=== PATIENT | female | born 1985 ===

== ENCOUNTER 2021-01-01 09:30 | Inpatient (IN) | payer OTHER ==
[~2021-01-01] VITALS: Ht 167.6 cm; Wt 79.4 kg
[2021-01-05] MEDS ORDERED: GABAPENTIN300 M2 (07:59)
[2021-01-07] MEDS ORDERED: GABAPENTIN300 MG PO (06:45)
[2021-01-07] MEDS ORDERED: OXYC1TAB9 PO (06:45)
== END 2021-01-07 11:23 | disposition home or self-care (01) | DRG 460 ==
LOC: O/R 01-05 05:55 → SURH 01-05 09:30 → PED 01-05 16:08
PROVIDERS: ADMIT Neurological Surgery; ATTEND Neurological Surgery
PROC: 0SG10A0 Fusion of 2 or more Lumbar Vertebral Joints with Interbody Fusion Device, Anterior Approach, Anterior Column, Open Approach (ICD-10-PCS; principal; 2021-01-05 09:30)
DX: M48.062 Spinal stenosis, lumbar region with neurogenic claudication (principal); M51.26 Other intervertebral disc displacement, lumbar region; Z20.822 Contact with and (suspected) exposure to COVID-19